=== PATIENT | male | born 1945 | race Two or more races ===

== ENCOUNTER 2018-03-24 06:56 | Inpatient (IN) | payer MEDICAID, MEDICARE ==
[~2018-03-24] VITALS: Ht 182.9 cm; Wt 59.6 kg
--- NOTE | 2018-03-24 07:10 | NUR ---
[id number] FROM [facility] FOR "COFFEE GROUND EMESIS" X1 THIS AM PER REPORT C/O BACK PAIN. [id number]. PLACED ON MONITOR. AWAITING MD ORDER
--- NOTE | 2018-03-24 07:15 | NUR ---
NEW IV STARTED ON RIGHT WRIST, 22G.
--- NOTE | 2018-03-24 07:20 | NUR ---
PATIENT MEDICATED PER MD ORDERS.
[2018-03-24] MEDS ORDERED: FAMOTIDINE/PF INJ 20 MG/2 ML VIAL IV ONE ×2 (07:23→07:27)
[2018-03-24] MEDS ORDERED: FAMOTIDINE/PF INJ 40 MG in IV D5W 50 ML IV ONE (07:30)
--- NOTE | 2018-03-24 07:39 | NUR ---
TECHNICAL SPECIALIST CYTOLOGY AT BEDSIDE.
[2018-03-24 07:40] LABS: BASOPHILS # (AUTO) 0.1 /CMM (0.0-0.2); BASOPHILS % (AUTO) 0.5 % (0.0-2.0); EOSINOPHILS % (AUTO) 0.5 % (0.0-6.0); HEMATOCRIT 50 % (39-51); HEMOGLOBIN 16.9 g/dL (13.5-17.5); LYMPHOCYTES # (AUTO) 1.7 /CMM (0.8-4.8); LYMPHOCYTES % (AUTO) 13.1 % (20.0-44.0); MEAN CORPUSCULAR HGB CONC 34 g/dl (31.0-36.0); MEAN CORPUSCULAR VOLUME 93 fL (80-96); MONOCYTES # (AUTO) 0.8 /CMM (0.1-1.30); MONOCYTES % (AUTO) 6.5 % (2.0-12.0); NEUTROPHILS # (AUTO) 10.3 /CMM (1.8-8.9); NEUTROPHILS % (AUTO) 79.4 % (43.0-81.0); PLATELET COUNT (AUTO) 245 /CMM (150-450); RDW COEFFICIENT OF VARIATION 14.8 (11.5-15.0); RED BLOOD CELL COUNT(AUTO) 5.34 MIL/uL (4.5-6.0)
[2018-03-24 07:49] LABS: CALCIUM, SERUM 9.9 mg/dL (8.5-10.1); CARBON DIOXIDE 23 mmol/L (21-32); CHLORIDE 104 mmol/L (98-107); CREATININE 1.1 mg/dL (0.6-1.3); GLUCOSE 175 mg/dL (74-106); POTASSIUM 4.3 mmol/L (3.5-5.1); SODIUM SERUM 143 mmol/L (136-145); UREA NITROGEN, BLOOD 25 mg/dL (7-18)
[2018-03-24 07:55] LABS: ALANINE AMINOTRANSFERASE 25 U/L (12-78); ALBUMIN 4.1 g/dL (3.4-5.0); ALKALINE PHOSPHATASE 133 U/L (46-116); ASPARTATE AMINOTRANSFERASE 15 U/L (15-37); BILIRUBIN,DIRECT 0.1 mg/dL (0.0-0.2); BILIRUBIN,TOTAL 0.5 mg/dL (0.2-1.0); LIPASE 155 U/L (73-393); TOTAL PROTEIN, SERUM 8.6 g/dL (6.4-8.2)
[2018-03-24 07:58] LABS: INR 0.98 (0.87-1.13)
--- NOTE | 2018-03-24 08:20 | NUR ---
CALLED [facility]- BY [facility] RIZ[facility]
--- NOTE | 2018-03-24 09:55 | NUR ---
DR. LAZARO CHRISTIANSON, HE SAID HE WILL CALL [facility] ECOMMERCE MANAGER.
--- NOTE | 2018-03-24 10:11 | NUR ---
CLINICAL INFORMATION PROVIDED TO AASHISH [phone], [facility]IR[facility] SILVERER.
--- NOTE | 2018-03-24 10:26 | NUR ---
CALLED PEGGY ZENDEJAS IDENTITY MANAGEMENT DEVELOPER, SHE [facility] ER DR SCHWAB. SHE WILL EXPEDITE THE PROCESS. DR. SCHWAB NOTIFIED
[2018-03-24] MEDS ORDERED: ATOR20TA PO (11:28)
[2018-03-24] MEDS ORDERED: MIRT30TA7 PO (11:28)
[2018-03-24] MEDS ORDERED: QUET25TA PO (11:28)
[2018-03-24] MEDS ORDERED: QUET50TA PO (11:28)
[2018-03-24] MEDS ORDERED: FINA5TAB3 PO (11:28)
[2018-03-24] MEDS ORDERED: TAMS0.4C34 PO (11:28)
[2018-03-24] MEDS ORDERED: HYDR-552 PO (11:28)
[2018-03-24] MEDS ORDERED: INSU100V3 SQ (11:28)
[2018-03-24] MEDS ORDERED: ASPI-1169 PO (11:28)
[2018-03-24] MEDS ORDERED: PHEN100C4 PO (11:28)
[2018-03-24] MEDS ORDERED: MAG30ORA GT (11:28)
[2018-03-24] MEDS ORDERED: FAMO-131 PO (11:28)
--- NOTE | 2018-03-24 11:29 | NUR ---
REPORT GIVEN TO LARISSA CA[place] FOR EVERT[place]
--- NOTE | 2018-03-24 12:10 | NUR ---
PATIENT TRANSPORTED TO [facility] VIA STRETCHER. RN, LARISSA TO PROVIDE EVERT[place].
[2018-03-24 12:15] VITALS: BP 121/70
--- NOTE | 2018-03-24 12:30 | NUR ---
ADMISSION NOTES ADMITTED PATIENT IN [facility] SURGE MALE ON 73Y/OLD ON DX OF GI BLEEDING. PATIENT A/O X2/3, NO ACUTE RESPIRATORY DISTRESS, . NO SOB, PATIENT WAS COMPLAINING OF LOWER BACK PAIN 02/04, BUT REFUSED PAIN MEDICATION AT THIS TIME. PATIENT REFUSED N/V AT THIS TIME. SKIN ASSESSMENT DONE SKIN INTACT, DRYNESS BILATERAL LOWER EXTREMITIES. PATIENT INCONTINENT/CONTINENT USING DIAPER, AND URINAL. IV ACCESS ON RIGHT WRIST INTACT. V/S TAKEN T- 97.8, BP-121/70, R-19, O2-99 ROOM AIR, P-83. NEEDS ATTENDED AND ANTICIPATED, CALL LIGHT WITHIN TO REACH. BED ALARM ON. CONTINUED MONITORING.
--- NOTE | 2018-03-24 13:00 | NUR ---
RN ADMITTING ORDERED CALLED DR. WILLIS FOR ADMITTING ORDERS, CLARIFIED MEDICATIONS ORDERS AND DIET ORDERS, WILL CONTINUE TO CARRY OUT ADMITTING ORDERS
[2018-03-24] MEDS ORDERED: ONDANSETRON HCL/PF 4 MG/2 ML VIAL IV PRN (15:00)
[2018-03-24] MEDS: Potassium Chloride 20 MEQ in IV D5/ 0.9% NACL 1,000 ML IV PRN (15:41)
[2018-03-24 16:00] VITALS: BP 107/73
[2018-03-24] MEDS ORDERED: INSULIN REGULAR, HUMAN 100 UNIT/ML 3 ML VIAL SQ PRN (16:00)
[2018-03-24] MEDS ORDERED: HYDROCODONE/APAP 5/325MG 1 EACH TABLET PO PRN (16:00)
[2018-03-24] MEDS ORDERED: DEXTROSE 50%-WATER 50 ML DISP.SYRIN IV PRN (16:00)
[2018-03-24] MEDS ORDERED: MAG HYDROX/AL HYDROX/SIMETH 30 ML UDC GT PRN (16:00)
[2018-03-24] MEDS: PANTOPRAZOLE 40 MG VIAL IV SCH (16:58)
[2018-03-24] MEDS: PHENYTOIN EXTENDED RELEASE 100 MG CAPSULE PO SCH (16:58)
[2018-03-24] MEDS: BLOOD SUGAR DIAGNOSTIC 1 EACH STRIP IN SCH ×2 (16:58→21:22)
[2018-03-24] MEDS: INSULIN REGULAR, HUMAN 100 UNIT/ML 3 ML VIAL SQ PRN (17:02)
--- NOTE | 2018-03-24 18:42 | NUR ---
MS RN CLOSING NOTE PT IS IN BED RESTING, EASILY AROUSABLE ABLE TO MAKE NEEDS KNOWN, ORIENTED TO SELF ONLY WITH FORGETFULNESS. NO SIGNS OF SOB OR DISTRESS, RESPIRATIONS EVEN AND UNLABORED ON RA.IV ACCESS PATENT AND INTACT NO REDNESS OR INFILTRATION WRAPPED WITH KERLIX. PATIENT ABLE TO TOLERATE CLEAR LIQUIDS, ALL NEEDS WERE ANTICIPATED AND MET. BED IS IN LOW AND LOCKED POSITION, SAFETY MEASURES IN PLACE, CALL LIGHT WITHIN REACH. WILL CONTINUE TO MONITOR AND ENDORSE TO WHEEL POLISHER FOR CONTINUITY OF CARE
--- NOTE | 2018-03-24 19:36 | NUR ---
MS RN INITIAL NOTE PT IS IN BED AWAKE AND ALERT, ORIENTED TO SELF. NO SIGNS OF SOB OR DISTRESS, BREATHING EVENLY AND UNLABORED ON RA. DENIES NAUSEA AND NO VOMITING. IV ACCESS IS INTACT AND PATENT, WRAPPED IN KERLIX WITH FLUIDS INFUSING. BED IS IN LOW AND LOCKED POSITION, CALL LIGHT WITHIN REACH. WILL CONTINUE TO MONITOR PT
[2018-03-24 20:00] VITALS: BP 104/73
--- NOTE | 2018-03-24 21:00 | NUR ---
MS RN NOTE PT IS CONTINUOUSLY ATTEMPTING TO PULL OUT HIS IV, GETTING COMBATIVE. PT IS REORIENTED, TUBES ARE HIDDEN, IV IS WRAPPED. WILL CONTINUE TO MONITOR
[2018-03-24] MEDS ORDERED: MIRTAZAPINE 15 MG TABLET PO SCH (22:00)
[2018-03-24] MEDS ORDERED: QUETIAPINE FUMARATE 25 MG TABLET PO SCH (22:00)
[2018-03-24] MEDS ORDERED: ATORVASTATIN 10 MG TABLET PO SCH (22:00)
--- NOTE | 2018-03-24 22:30 | NUR ---
MS RN NOTE PT PULLED OUT IV, CONTINUES TO BE COMBATIVE AND NON COMPLIANT WITH CARE. NEW IV WAS STARED ON LEFT FOREARM, IV WAS WRAPPED WITH KERLIX ND SLEEVE WAS APPLIED. WILL CONTINUE TO MONITOR PT
[2018-03-25] MEDS: Potassium Chloride 20 MEQ in IV D5/ 0.9% NACL 1,000 ML IV PRN (06:10)
[2018-03-25 06:49] LABS: BASOPHILS % (AUTO) 0.4 % (0.0-2.0); EOSINOPHILS % (AUTO) 0.9 % (0.0-6.0); HEMATOCRIT 45 % (39-51); HEMOGLOBIN 15.2 g/dL (13.5-17.5); LYMPHOCYTES # (AUTO) 2.2 /CMM (0.8-4.8); LYMPHOCYTES % (AUTO) 18.4 % (20.0-44.0); MEAN CORPUSCULAR HGB CONC 34 g/dl (31.0-36.0); MEAN CORPUSCULAR VOLUME 94 fL (80-96); MONOCYTES # (AUTO) 0.9 /CMM (0.1-1.30); MONOCYTES % (AUTO) 7.5 % (2.0-12.0); NEUTROPHILS # (AUTO) 8.6 /CMM (1.8-8.9); NEUTROPHILS % (AUTO) 72.8 % (43.0-81.0); PLATELET COUNT (AUTO) 198 /CMM (150-450); RDW COEFFICIENT OF VARIATION 14.8 (11.5-15.0); RED BLOOD CELL COUNT(AUTO) 4.84 MIL/uL (4.5-6.0); WHITE BLOOD COUNT (AUTO) 11.8 K/uL (4.3-11.0)
[2018-03-25] MEDS: BLOOD SUGAR DIAGNOSTIC 1 EACH STRIP IN SCH ×2 (06:49→12:48)
--- NOTE | 2018-03-25 06:53 | NUR ---
MS RN CLOSING NOTE PT IS IN BED AWAKE AND ALERT. NO SIGNS OF SOB OR DISTRESS, BREATHING EVENLY AND UNLABORED ON RA. IV ACCESS IS INTACT AND PATENT, WRAPPED IN KERLIX, WITH FLUIDS INFUSING. ALL NEEDS WERE ANTICIPATED AND MET. BED IS IN LOW AND LOCKED POSITION, CALL LIGHT WITHIN REACH. WILL ENDORSE TO DAYSHIFT
[2018-03-25 07:02] LABS: CALCIUM, SERUM 9.1 mg/dL (8.5-10.1); CARBON DIOXIDE 23 mmol/L (21-32); CHLORIDE 108 mmol/L (98-107); GLUCOSE 137 mg/dL (74-106); POTASSIUM 5.1 mmol/L (3.5-5.1); SODIUM SERUM 141 mmol/L (136-145); UREA NITROGEN, BLOOD 23 mg/dL (7-18)
[2018-03-25] MEDS: INSULIN REGULAR, HUMAN 100 UNIT/ML 3 ML VIAL SQ PRN (07:26)
--- NOTE | 2018-03-25 07:27 | NUR ---
RN OPENING NOTES PATIENT IN BED RESTING, AWAKE, AND A/OX2-3. NO SIGNS OF SOB OR DISTRESS, BREATHING EVENLY AND UNLABORED ON RA. IV ACCESS IS INTACT AND PATENT, WRAPPED IN KERLIX, WITH FLUIDS INFUSING. KEPT PATIENT SAFE AND COMFORTABLE. BED IS IN LOW AND LOCKED POSITION, SIDERAILS UPX2, CALL LIGHT WITHIN REACH. WILL CONTINUE TO MONITOR ACCORDINGLY
[2018-03-25 07:36] LABS: THYROID STIMULATING HORMONE 1.857 uIU/mL (0.358-3.74)
[2018-03-25 08:00] VITALS: BP 115/76
[2018-03-25] MEDS: PANTOPRAZOLE 40 MG VIAL IV SCH (08:34)
[2018-03-25] MEDS: PHENYTOIN EXTENDED RELEASE 100 MG CAPSULE PO SCH (08:35)
[2018-03-25] MEDS ORDERED: TAMSULOSIN 0.4 MG CAP.SR.24H PO SCH (09:00)
[2018-03-25] MEDS ORDERED: QUETIAPINE FUMARATE 25 MG TABLET PO SCH (09:00)
[2018-03-25] MEDS ORDERED: FINASTERIDE (5 MG) 5 MG TABLET PO SCH (09:00)
--- NOTE | 2018-03-25 09:00 | NUR ---
RN NOTES PATIENT REFUSED AM MEDICATIONS, DR WILLIS MADE AWARE.
--- NOTE | 2018-03-25 15:00 | NUR ---
CORPORATE SALES TRAINER NOTES DISCHARGED PATIENT IN STABLE CONDITION PICKED UP BY HANDLE SEWER. DISCHARGE PAPERWORK AND PRESCRIPTION GIVEN. DISCHARGE INSTRUCTIONS AND REPORT GIVEN TO DREAD CH FROM [facility], VERBALIZED UNDERSTANDING. NO BELONGINGS NOTED. LEFT FA IV REMOVED, APPLIED PRESSURE, NO BLEEDING, NO COMPLICATIONS. REMOVED NAME BAND
== END 2018-03-25 15:19 | DRG 253 ==
LOC: ER 06:57 → MEDSG2 11:41
PROVIDERS: ADMIT Internal Medicine; ATTEND Internal Medicine
DX: K92.2 Gastrointestinal hemorrhage, unspecified (principal); G40.909 Epilepsy, unspecified, not intractable, without status epilepticus; F20.9 Schizophrenia, unspecified; F32.9 Major depressive disorder, single episode, unspecified; R10.9 Unspecified abdominal pain; E78.5 Hyperlipidemia, unspecified; F29 Unspecified psychosis not due to a substance or known physiological condition; N40.0 Benign prostatic hyperplasia without lower urinary tract symptoms
CPT/HCPCS: 36415; 71045-TC; 80048-TC; 80076-TC; 82962-TC; 83690-TC; 84443-TC; 85025-TC; 85730-TC; 86850-TC; 87081-TC; A4606; C9113; J1815; J3480; J3490; J7042; J7060; Z7610